=== PATIENT | female | born 1960 | race Caucasian/White ===

== ENCOUNTER 2016-11-12 16:52 | Emergency (ER) | payer BC ==
--- NOTE | 2016-11-12 17:54 | ER NURSING DOCUMENTATION ---
Nurse's Notes [facility] Name:Lupe Bass Age:56 yrs Sex:Female :1960 Arrival Date:11/12/2016 Time:16:52 Bed3 Private MD:Susan Mccauley Diagnosis:Laryngitis, w/o Obstruction;Pleurisy Presentation: 11/12 16:59 Presenting complaint: Patient states: FOR LAST FEW WEEKS AFTER AN ASTHMA ATTACK, HAS lc BEEN C/O SOB AND CHEST TIGHTNESS. GOT WORSE TODAY AT WORK AND WAS FATIGUED AND C/O HOARSENESS. NO NAUSEA, DIZZINESS, SWEATING. TRIED TO SEE DR MCCAULEY AND SENT TO ED. Transition of care: Home. AIR CAT ACTIVATION no. Asprin Given n/a. Risk considerations: negative evaluation for symptoms or risks of deep vein thrombosis or pulmonary embolism. 16:59 Acuity: ISAI 2 lc 16:59 Method Of Arrival: Private Vehicle lc 17:01 Acuity: ISAI 2 tg Triage Assessment: 17:24 General: Appears in no apparent distress, Behavior is cooperative, pleasant. Pain: Complains of pain in chest Pain does not radiate. Pain At worst was 2 out of 10 on a pain scale. Quality of pain is described as gnawing, Pain began 2 WEEKS Is intermittent. Cardiovascular: Reports fatigue, Denies lightheadedness, palpitations, syncope, Rhythm is sinus rhythm. Respiratory: Airway is patent Respiratory effort is even, unlabored, Respiratory pattern is regular, symmetrical, Breath sounds are clear bilaterally. GI: Abdomen is non- distended Abd is soft and non tender X 4 quads. Derm: Skin is pink, warm & dry. Historical: - Allergies: No known drug Allergies; No known drug Allergies; No known drug Allergies; - Home Meds: 1. Levothroid Oral 2. Levothroid Oral 3. musinex 4. ProAir HFA inhalation 5. Advair Diskus Inhl 6. Mucinex oral 7. Zyrtec Oral 8. Flonase Nasal - PMHx: ASTHMA; HYPOTHYROIDISM; Asthma with Acute Exacerbation (November 26, 2014); - PSHx: HYSTERECTOMY; SINUS; ORBIT; - Tetanus: < 10 years. - Ebola Screening: : No symptoms or risks identified at this time. . - Immunization history: Pneumococcal vaccine is up to date, Flu Vaccine >1 year. - Social history: Smoking status: Patient states was never smoker of tobacco. Screenin:34 Infectious Disease Risk None. Abuse screen: Denies threats or abuse. Denies injuries lc from another. Nutritional screening: No deficits noted. Assessment: 17:33 See Triage Assessment done by same RN. Pain: Pain does not radiate. Pain began 2 WEEKS. Cardiovascular: Rhythm is sinus rhythm. Vital Signs: 17:05 BP 128 / 74; Pulse 86; Resp 18; Temp 98.1; Pulse Ox 94% on R/A; Weight 74.84 kg; Height lc 5 ft. 8 in. (172.72 cm); Pain 2/10; 17:30 BP 145 / 93; Pulse 78; Resp 19; Pulse Ox 90% on R/A; Pain 1/10; lc 17:50 BP 123 / 89; Pulse 77; Resp 18; Pulse Ox 91% on R/A; Pain 1/10; lc 17:05 Body Mass Index 25.09 (74.84 kg, 172.72 cm) ED Course: 16:53 Patient arrived in ED. ds 16:53 Susan Mccauley MD is Private Physician. ds 16:59 Jocy Caal, RN is Primary Nurse. 17:01 Triage completed. tg 17:03 EKG done. (by ED staff). Reviewed by Jocy Caal RN. 17:23 Bruno Goncalves MD is Attending Physician. 17:34 Valuables Remains with patient Patient has correct armband on for positive lc identification. Placed in gown. Bed in low position. Call light in reach. Side rails up X 1. metal treater on. Pulse ox on. 17:37 Susan Mccauley MD is Referral Physician. 17:52 Oxygen O2 via NOT APPLIES, DOES USE O2 AT NIGHT. Administered Medications: No medications were administered Outcome: 17:38 Discharge ordered by . 17:51 Discharged to home ambulatory. 17:51 Condition: stable 17:51 Discharge Assessment: Patient awake, alert and oriented x 3. No cognitive and/or functional deficits noted. Patient verbalized understanding of disposition instructions. 17:51 Discharge instructions given to patient, Instructed on discharge instructions, follow up and referral plans. WORSENING CP OR ANY NEW SYMPTOMS TO RETURN TO ED Demonstrated understanding of instructions. 17:53 Patient left the ED. 05/23 15:56 Discharge F/U Call: Unable to reach: left voicemail: lc Signatures: Keith Badillo RN RN tg Jocy Caal RN RN lc Srot, Deidra, Bruno Huff MD MD jm
--- NOTE | 2016-11-12 17:54 | ER PHYSICIAN DOCUMENTATION ---
Physician Documentation [facility] Name:Lupe Bass Age:56 yrs Sex:Female :1960 Arrival Date:11/12/2016 Time:16:52 Bed3 Private MD:Susan Mccauley ED, John Disposition: 11/12/16 17:38 Discharged to Home/Self Care. Impression: Laryngitis, w/o Obstruction, Pleurisy. - Condition is Fair. - Discharge Instructions: PLEURISY, Disease, Laryngeal - LARYNGITIS. - Medical Reconciliation form form. - Follow up: Susan Mccauley MD; When: 4- 6 days; Reason: Worsening of condition. - Problem is new. - Symptoms have improved. HPI: 11/12 18:05 This 56 yrs old Female presents to ER via Private Vehicle with complaints of jm Chest Pain. 18:05 The patient or guardian reports chest pain that is located primarily in the anterior jm chest wall. Onset: today. The pain does not radiate. There has been no movement of pain. Associated signs and symptoms: Pertinent positives: scratchy throat. . The chest pain is described as dull. Duration: The patient or guardian reports a single episode, that lasted 4 hour(s). Severity of pain: in the emergency department the pain is unchanged. This patient does not have any risk factors related to chest pain. The patient has not experienced similar symptoms in the past. Pt told by substitute nurse to come down to the ER for eval of her scratchy throat and mild chest discomfort. . Historical: - Allergies: No known drug Allergies; No known drug Allergies; No known drug Allergies; - Home Meds: 1. Levothroid Oral 2. Levothroid Oral 3. musinex 4. ProAir HFA inhalation 5. Advair Diskus Inhl 6. Mucinex oral 7. Zyrtec Oral 8. Flonase Nasal - PMHx: ASTHMA; HYPOTHYROIDISM; Asthma with Acute Exacerbation (November 26, 2014); - PSHx: HYSTERECTOMY; SINUS; ORBIT; - Tetanus: < 10 years. - Ebola Screening: : No symptoms or risks identified at this time. . - Immunization history: Pneumococcal vaccine is up to date, Flu Vaccine >1 year. - Social history: Smoking status: Patient states was never smoker of tobacco. ROS: 18:05 Constitutional: Negative for fatigue, fever. 18:05 ENT: Positive for hoarseness, Negative for sinus congestion, sinus pain, sore throat. 18:05 Cardiovascular: Positive for chest pain. 18:05 Respiratory: Negative for cough, shortness of breath. 18:05 Skin: Negative for rash. 18:05 Psych: Negative for anxiety, depression. Exam: 18:05 Constitutional: The patient appears alert, awake. 18:05 ENT: Mouth: is normal, Voice: is hoarse. 18:05 Cardiovascular: Rate: normal, Rhythm: regular. 18:05 Respiratory: Respirations: normal, Breath sounds: are normal. 18:05 Neuro: Mentation: is normal, Memory: is normal. 18:05 Psych: Behavior/mood is pleasant, cooperative, Affect is calm. Vital Signs: 17:05 BP 128 / 74; Pulse 86; Resp 18; Temp 98.1; Pulse Ox 94% on R/A; Weight 74.84 kg; Height lc 5 ft. 8 in. (172.72 cm); Pain 2/10; 17:30 BP 145 / 93; Pulse 78; Resp 19; Pulse Ox 90% on R/A; Pain 1/10; lc 17:50 BP 123 / 89; Pulse 77; Resp 18; Pulse Ox 91% on R/A; Pain 1/10; lc 17:05 Body Mass Index 25.09 (74.84 kg, 172.72 cm) MDM: 17:23 Patient medically screened. 18:16 Differential diagnosis: chest wall pain, pleurisy. The patient was not given aspirin in the Emergency Department. Data reviewed: vital signs, nurses notes, old medical records, EKG, and as a result, I will discharge patient. Test interpretation: by ED physician or midlevel provider: ECG. Counseling: I had a detailed discussion with the patient and/or guardian regarding: the historical points, exam findings, and any diagnostic results supporting the discharge/admit diagnosis, radiology results, the need for outpatient follow up, with the patient's primary care provider. ECG:. 11/12 17:35 Order name: EKG - 12 Lead; Complete Time: 17:36 11/12 17:35 Order name: Continuous Cardiac Monitoring; Complete Time: 17:36 11/12 17:35 Order name: Pulse Ox Continuous; Complete Time: 17:36 EC:16 Rhythm is regular. QRS [place] is Normal. [place] interval is normal. QRS interval is normal. QT interval is normal. No Q waves. T waves are Normal. No ST changes noted. Dispensed Medications: No medications were administered Signatures: Jocy Caal RN RN lc Meyer, John, MD MD jm
== END 2016-11-12 17:54 | disposition home or self-care (01) ==
LOC: ER 16:52
DX: J04.0 Acute laryngitis (principal); R09.1 Pleurisy; R07.81 Pleurodynia; J45.909 Unspecified asthma, uncomplicated; Z79.899 Other long term (current) drug therapy
CPT/HCPCS: 93005; 99284